=== PATIENT | female | born 1940 | race Caucasian/White ===

== ENCOUNTER 2018-08-22 09:15 | Inpatient (IN) | payer MEDICARE, BC ==
--- NOTE | 2018-08-22 10:43 | RAD ---
XR Femur Lt 2 View STANDARD History: [Leg swelling] Comparison: None. Findings: There is a left hip arthroplasty in place. There is a distal femoral fracture with mild ruby marely angulation as well as comminution. No definite intra-articular extension is appreciated. Impression: Comminuted distal femoral fracture without definite intra-articular extension.
--- NOTE | 2018-08-22 10:43 | RAD ---
Single view of the pelvis INDICATION: History of left leg swelling and trauma FINDINGS: There is a minimally displaced comminuted left greater trochanter fracture which is new. Th is is adjacent to a left hip endoprosthesis which is stable in appearance to a comparison dated 04/22/2014. There is diffuse osteopenia. There is a healed instrumented right intertrochanteric hip fra cture with cephalomedullary device. There are scattered vascular calcifications. There is a mild amount of retained stool within the colon. IMPRESSION: 1. Interval development of an minimally displaced comminuted left greater trochanteric hip fracture. 2. Left hip endoprosthesis appears unchanged in position. 3. Interval healing of the previously seen right intertrochanteric hip fracture with cephalomedullary device. 4. Diffuse osteopenia.
[2018-08-22 10:49] LABS: ALT (SGPT) 10 U/L (8-55); AST (SGOT) 12 U/L (5-34); Albumin 3.5 g/dL (3.4-4.8); Alkaline Phosphatase 68 U/L (40-150); Anion Gap 15 mmol/L (10-20); BUN (Urea Nitrogen) 26 mg/dL (9.8-20.1); Bilirubin, Total 0.6 mg/dL (0.2-1.2); CK (CPK) 117 U/L (29-168); Calc. Creatinine Clearance 0 mL/min (70-130); Carbon Dioxide 28 mmol/L (23-31); Chloride 108 mmol/L (98-107); Estimated GFR-MDRD 75; Globulin 3.4 g/dL (2.4-3.5); Glucose 124 mg/dL (83-110); Potassium 4.1 mmol/L (3.5-5.1); Protein, Total 6.9 g/dL (6.0-8.3); Sodium 147 mmol/L (136-145)
[2018-08-22 11:27] LABS: Hemoglobin 11.4 g/dL (12.0-16.0); Mean Corpuscular HGB CONC 31.8 g/dL (32.0-36.0); Mean Corpuscular Hemoglobin 32.5 pg (27.0-31.0); Platelet Count 107 thou/uL (130-400); RBC Distribution Width 11.8 % (11.5-14.5); Red Blood Cell (RBC) Count 3.52 mill/uL (4.20-5.40); White Blood Cell (WBC) Count 11.8 thou/uL (4.8-10.8)
[2018-08-22 11:34] LABS: Band 6 % (5-11); Lymphocytes 19 % (21-51); Monocytes 4 % (0-10); Neutrophil 71 % (42-75)
[2018-08-22 11:35] LABS: MDiff Complete? YES
--- NOTE | 2018-08-22 12:12 | RAD ---
Chest AP view INDICATION: Preop chest radiograph; history of fall with left femur fracture COMPARISON: April 22, 2014 FINDINGS: Lungs:There is patchy opacity within the left lower lobe may reflect atelectasis or pneumonia. Right lung is clear. There are radiopaque densities seen overlying the left hilar region which may be external to the patient reflecting improving artifact. Cardiac silhouette pulmonary vasculature:The cardiomediastinal silhouette appears within normal limit s. Pleural spaces:No pleural effusion or pneumothorax is demonstrated. Upper abdomen:No abnormality seen. Osseous structures: No acute osseous abnormality. There is scattered degenerative and osteoarthritic change present. There are stable healed rib deformities involving the left anterolateral chest wall. Additional findings:None. IMPRESSION: Patchy opacities within the left lower lobe may reflect pneumonia, aspiration or subsegme ntal atelectasis. There are stable healed rib deformities involving the anterolateral left chest wall. There are radiopaque densities overlying the left heart border which may be external to the pat ient. Recommend correlation.
--- NOTE | 2018-08-22 12:13 | RAD ---
XR Knee Lt 2 View: 08/22/2018 11:50 AM CLINICAL INDICATION: Fall with left knee pain COMPARISON: None. FINDINGS: Bones: There is a comminuted obliquely oriented supracondylar left femur fracture. The distal fractu re fragment is displaced laterally approximately one half shaft width. There is medial angulation at the fracture site. There is diffuse osteopenia. Joints: Within normal limits. Soft Tissue: There is soft tissue swelling of the distal left thigh. IMPRESSION: Angulated, mildly displaced left supracondylar femur fracture.
[2018-08-22 12:47] LABS: INR-International Normal Ratio 1.1; PTT 25.5 SEC (22.9-36.1); Prothrombin Time 14.3 SEC (12.0-14.7)
[2018-08-22] MEDS ORDERED: Dextrose 50% Abboject 50 ML SYRINGE SLOW IVP PRN (13:44)
[2018-08-22] MEDS ORDERED: Ondansetron ODT 4 MG TAB PO PRN (13:44)
[2018-08-22] MEDS ORDERED: Ondansetron PF 4 MG/2 ML Vial IVP PRN (13:44)
[2018-08-22] MEDS ORDERED: hydrALAZINE 20 MG/ML VIAL SLOW IVP PRN (13:44)
[2018-08-22] MEDS ORDERED: Dextrose 5% in Water 1,000 ML IV PRN (13:44)
[2018-08-22] MEDS ORDERED: traMADol HCl 50 MG TAB PO PRN (13:59)
[2018-08-22] MEDS: Acetaminophen 325 MG TAB PO SCH ×2 (15:25→20:59)
--- NOTE | 2018-08-22 15:26 | HP ---
This is Mary Street NP dictating a report for Jonathan Rose DO. CONSULT: Dr. Cortez, Orthopedic Surgery. HISTORY OF PRESENT ILLNESS: The patient presented to the emergency room with swelling and deformity to left distal femur. The patient's states that when he went to visit this morning the BUZZSAW OPERATOR HELPER and himself noticed swelling to her left leg and knee and he felt like she was in pain. It is unknown if the patient fell. The patient is currently nonambulatory. The patient lives at a private assisted living facility called [facility] and has recently been on hospice care. The patient has been taking Depakote, which has been making her more sleepy than normal. The patient was taken off the Depakote 3 days ago per her . The patient used to be able to transfer herself from wheelchair to bed and stand on her own, but has been nonambulatory for the last several months as she is deconditioned with generalized muscle weakness. The patient was also evaluated by Dr. Cortez with Orthopedic Surgery. Dr. Cortez and the patient's spouse feel like the patient would benefit from surgical repair of her left femur fracture for pain control. 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 PAST SURGICAL HISTORY: Right femur repair, left partial hip replacement, and left wrist repair. SOCIAL HISTORY: The patient has never smoked. Denies alcohol use. Denies history of drug use. The patient currently lives in an assisted living facility called [facility]. ALLERGIES: multiple documented MEDICATIONS: Clonazepam and Prozac REVIEW OF SYSTEMS: A 10-point review of systems is negative unless otherwise stated in the above HPI. PHYSICAL EXAMINATION: VITAL SIGNS: Blood pressure 109/66, pulse 102, respirations 17, temperature 99.1, SpO2 of 94% on room air, and respirations 17. GENERAL: The patient with upper extremity contractures. No obvious distress. The patient nonverbal and does not open eyes initially. HEENT AND NECK: Atraumatic, normocephalic. Unable to examine pupils due to patient's squinting eyes together, the patient with chronic purulent drainage. Trachea midline. No carotid bruit. RESPIRATORY: Bilateral breath sounds clear. No respiratory distress. Chest rise equal and nonlabored. CARDIOVASCULAR: Regular rate and rhythm. No murmurs. No pedal edema. EXTREMITIES: Upper extremities, skin tears to right elbow contractures noted. Lower extremities, 2+ pedal pulses bilateral. Left distal femur with swelling and deformity, appears shortened and externally rotated. ABDOMEN: Soft, nontender, and nondistended. Active bowel sounds. NEUROLOGIC: Opens eyes to voice, nonverbal, normal per . LABORATORY DATA: WBC 11.8, RBC 3.52, hemoglobin 11.4, hematocrit 35.9, and platelets 107. PT is 14.3, INR 1.1, and APTT 25.5. Sodium 147, potassium 4.1, chloride 108, carbon dioxide 28, anion gap 15, BUN 26, creatinine 0.75, estimated GFR 75, glucose 124, calcium 10.0, total bilirubin 0.6, AST 12, ALT 10, alkaline phosphatase 68, creatine kinase 117, serum total protein 6.9, albumin 3.5, globulin 3.4, albumin-globulin ratio 1.0. DIAGNOSTICS: 1. Femur x-ray, comminuted distal femoral fracture to the left. 2. Pelvis x-ray, diffuse osteopenia, interval healing of previously seen right intertrochanteric hip fracture with cephalomedullary device, left hip endoprosthesis appears unchanged, interval development of a minimally displaced comminuted left greater trochanteric hip fracture. 3. Chest x-ray, patchy opacities within the left lower lobe, may reflect pneumonia, aspiration, or atelectasis. Stable healed rib deformities involving the anterolateral left chest. 4. Left knee x-ray, angulated, mildly displaced left supracondylar femur fracture. IMPRESSION: 1. Left distal femur fracture. 2. History of Lewy body dementia, Parkinson, MVP PLAN: We will place the patient on the surgical floor. We will keep the patient comfortable and control pain. We will place the patient n.p.o. after midnight for repair of left distal femur fracture by Dr. Cortez. We will repeat lab work in the morning. We will place the patient on a bowel regimen. Plan is for the patient to go back to her assisted living location after surgery once the patient is stable. The plan was discussed with Dr. Rose who agrees. Job ID: [id number] [facility]
[2018-08-22 15:37] VITALS: BMI 17.3
[2018-08-22] MEDS: Senokot S 8.6-50 MG TAB PO SCH (20:59)
[2018-08-22] MEDS: Famotidine/PF 20 mg/2ml Vial SLOW IVP SCH (21:01)
[2018-08-22] MEDS: Lactated Ringer's 1,000 ML IV SCH (23:48)
[2018-08-23] MEDS ORDERED: Sodium Chloride 0.9% 1,000 ML IV SCH
[2018-08-23] MEDS: Acetaminophen 325 MG TAB PO SCH ×4 (01:17→19:45)
[2018-08-23 07:34] LABS: Anion Gap 8 mmol/L (10-20); BUN (Urea Nitrogen) 20 mg/dL (9.8-20.1); Calc. Creatinine Clearance 61 mL/min (70-130); Calcium 8.8 mg/dL (7.8-10.44); Carbon Dioxide 29 mmol/L (23-31); Chloride 110 mmol/L (98-107); Estimated GFR-MDRD Greater than 90; Glucose 94 mg/dL (83-110); Magnesium 1.6 mg/dL (1.6-2.6); Phosphorus 1.8 mg/dL (2.3-4.7); Potassium 3.4 mmol/L (3.5-5.1); Sodium 144 mmol/L (136-145)
[2018-08-23] MEDS ORDERED: Potassium Phosphate 30 MMOL in Sodium Chloride 0.9% 500 ML IVPB SCH (07:45)
[2018-08-23] MEDS ORDERED: Fentanyl 250 MCG/5 ML VIAL ONE (07:58)
[2018-08-23] MEDS: Famotidine/PF 20 mg/2ml Vial SLOW IVP SCH ×2 (08:57→19:56)
[2018-08-23] MEDS: Polyethylene Glycol 3350 17 GM Packet PO SCH (08:57)
[2018-08-23] MEDS: Senokot S 8.6-50 MG TAB PO SCH ×2 (08:57→19:54)
[2018-08-23] MEDS ORDERED: Clindamycin/D5W 900 mg/50 ml Premix Bag ONE (09:14)
--- NOTE | 2018-08-23 11:39 | RAD ---
EXAM: 6 fluoroscopic spot images of the left femur DATE: 08/23/2018 12:00 AM INDICATION: Open reduction internal fixation of the left femur COMPARISON: August 22, 2018 FINDING: There is been interval placement of a long plate and screw construct fixating the lateral a spect of the left femur. There is improved alignment of the comminuted left supracondylar femur fracture. This is near anatomic. The instrumentation projects in the expected position without gross evidence of complication. The total fluoroscopic time was 91.4 seconds. The total exposure was 4.83 mGy. IMPRESSION:ORIF of left supracondylar femur fracture
[2018-08-23] MEDS: Lactated Ringer's 1,000 ML IV SCH (14:13)
[2018-08-23 15:07] LABS: Band 8 % (5-11); Hemoglobin 9.7 g/dL (12.0-16.0); Lymphocytes 12 % (21-51); MDiff Complete? YES; Mean Corpuscular HGB CONC 32.4 g/dL (32.0-36.0); Mean Corpuscular Hemoglobin 33.2 pg (27.0-31.0); Monocytes 9 % (0-10); Neutrophil 70 % (42-75); Platelet Morphology Comment PLT clumps seen-ADEQ; RBC Distribution Width 11.9 % (11.5-14.5); Red Blood Cell (RBC) Count 2.93 mill/uL (4.20-5.40); White Blood Cell (WBC) Count 11.6 thou/uL (4.8-10.8)
--- NOTE | 2018-08-23 16:38 | PRG ---
DATE OF SERVICE: 08/23/2018 SUBJECTIVE: This is a 77-year-old female, postop day 0 left distal femur fracture. The patient is awake and alert, in no distress. The patient's spouse is at bedside helping the patient eat which patient is tolerating a soft diet well. The patient is also tolerating liquids. The patient does not appear to be in any pain or distress. OBJECTIVE: VITAL SIGNS: Temperature 98.3, pulse 94, respirations 16, SpO2 of 97% on 2 L, blood pressure 103/67. GENERAL: The patient is awake and alert, currently eating in no distress. RESPIRATORY: No respiratory distress. Bilateral breath sounds equal, nonlabored. CARDIOVASCULAR: Regular rate and rhythm. EXTREMITIES: Moves all extremities. Left leg with a bandage in place. Positive distal pulses. ABDOMEN: Soft, nontender, nondistended. LABORATORY DATA: WBC 11.6, RBC 2.93, hemoglobin 9.7, hematocrit 30.1. Sodium 144, potassium 3.4, chloride 110, carbon dioxide 29, BUN 20, creatinine 0.53, estimated GFR 90, glucose 94, calcium 8.8, phosphorus 1.8, and magnesium 1.6. DIAGNOSTICS: Femur x-ray. IMPRESSION: 1. Open reduction and internal fixation of left supracondylar femur fracture. 2. Left distal femur fracture postop day 0 open reduction and internal fixation. 3. History of Lewy body dementia, Parkinson's, mitral valve prolapse. PLAN: We will continue the patient on a regular diet as tolerated. We will control the patient's pain. We will provide comfort measures. Plan is for the patient to go back to her assisted living location in the next day or so. Plan was discussed with Dr. Rose, who agrees. Job ID: [id number]
[2018-08-23] MEDS: Clindamycin/D5W 600 MG in Premix Bag 1 BAG IVPB SCH (16:44)
[2018-08-23] MEDS ORDERED: clonazePAM 1 MG TAB PO PRN (18:19)
[2018-08-24] MEDS: Acetaminophen 325 MG TAB PO SCH ×6 (01:12→20:25)
[2018-08-24] MEDS: Clindamycin/D5W 600 MG in Premix Bag 1 BAG IVPB SCH (01:15)
[2018-08-24] MEDS: Lactated Ringer's 1,000 ML IV SCH (01:20)
[2018-08-24 05:43] LABS: Anion Gap 10 mmol/L (10-20); BUN (Urea Nitrogen) 11 mg/dL (9.8-20.1); Calc. Creatinine Clearance 57 mL/min (70-130); Carbon Dioxide 25 mmol/L (23-31); Chloride 106 mmol/L (98-107); Estimated GFR-MDRD Greater than 90; Glucose 89 mg/dL (83-110); Potassium 4.3 mmol/L (3.5-5.1); Sodium 137 mmol/L (136-145)
[2018-08-24] MEDS ORDERED: FLUoxetine HCl 20 MG CAP PO SCH (09:00)
[2018-08-24] MEDS ORDERED: traMADol HCl 50 MG TAB PO SCH (09:00)
[2018-08-24] MEDS ORDERED: Enoxaparin Sodium 30 MG/0.3 ML SYRINGE SC SCH (09:00)
--- NOTE | 2018-08-24 09:29 | CON ---
DATE OF CONSULTATION: 08/22/2018 CONSULTING PHYSICIAN: Dr. Sergio Franklin. CHIEF COMPLAINT: Left hip pain. HISTORY OF PRESENT ILLNESS: Ms. Townsend is a 77-year-old female, who is currently at [facility] per report. The patient's and son are at bedside, who gave the history. The patient did not respond to questions or answer any questions asked during my time. During my visit, I discussed with the patient's events, which they are unaware, just noted to have left leg swelling, concern for a possible transfer, possible other injury that led to this left leg pain. The patient is currently curled in bed without complaint. PAST MEDICAL HISTORY: Includes a basal cell carcinoma, mitral valve prolapse, celiac disease, left basicervical fracture, right intertrochanteric, left wrist fracture, frequent UTIs, and dementia. PAST SURGICAL HISTORY: Includes a right open reduction and internal fixation for intertrochanteric and left hemiarthroplasty. PSYCHIATRIC HISTORY: Panic attacks and Lewy body dementia. ALLERGIES: AGGRENOX, ALENDRONATE, ARIPIPRAZOLE, ASPIRIN, AVELOX, BIAXIN, CEFTIN , CEFUROXIME, CLARITHROMYCIN, DIPYRIDAMOLE, DOXYCYCLINE, MYCIN, ERYTHROMYCIN, EZETIMIBE, FLUOXETINE, FOSAMAX, GLUTEN, HYDROCODONE, MOXIFLOXACIN, NAPROSYN, PENICILLIN G, PENICILLINS, PROZAC, RISPERDAL, RISPERIDONE, RYNATAN, VICODIN, AND ZETIA. MEDICATIONS: Please see admission list for full. SOCIAL HISTORY: Nondrinker. Nonsmoker. Currently in hospice, lives in [facility]. and son are at bedside. REVIEW OF SYSTEMS: Noncontributory. PHYSICAL EXAMINATION: VITAL SIGNS: Blood pressure 110/70, pulse 115, respiratory rate 20, unable to respond to pain, and 96% on room air, resting in bed. GENERAL: Alert and oriented x0. The patient resting in bed. Responding to painful stimuli. MUSCULOSKELETAL: Left lower extremity shows a large swelling and effusion consistent with injury. No open wounds. She has crepitus with motion of the distal femur. She has downgoing toes with Babinski. She has brisk cap refill. The patient has 1+ pulses noted in dorsalis pedis. The patient has soft compartments. With internal rotation of her left leg, she has pain and well-healed surgical scar. RADIOGRAPHS: Show a supracondylar distal femur fracture without obvious intracondylar extension. IMPRESSION: 1. Left chondral distal femur fracture with history of a left hip hemiarthroplasty. 2. Lewy body dementia. 3. Hospice. 4. Transfers, only ambulator. ASSESSMENT/PLAN: I spent about an 1 hour minutes in discussion with the patient 's family for conservative and operative management of the patient. I discussed the options of placing the patient in a splint for a period of time for comfort measures for three months. I discussed undergoing operative fixation, I discussed the risks and benefits of both procedures as the family felt that she is more mobile and was not consisting helping with transfers as well as transferring to a wheelchair. I felt that she would benefit from fixation as well as stability for pain control measures and desired for operative fixation. I discussed with them the risks and benefits of operative fixation include pain, scar, bleeding, infection , damage to vital structures, decreased range of motion and strength, nonunion, malunion, failure of the implant, need for further surgeries, loss of life or limb. I discussed she has increased mortality given this femur fracture as well as her multiple medical problems. I discussed that she may never weightbear on this again, it would be many for helping with transfers to software brace for likely 2 weeks just for stability standpoint. Family understand this, acknowledge it, they desire to proceed. She will be posted, admitted for trauma and followed inhouse. Job ID: [id number] [facility]
[2018-08-24 09:45] LABS: Magnesium 1.3 mg/dL (1.6-2.6); Phosphorus 3.3 mg/dL (2.3-4.7)
[2018-08-24] MEDS: Senokot S 8.6-50 MG TAB PO SCH ×2 (11:03→20:23)
[2018-08-24] MEDS: Famotidine 20 MG TAB PO SCH ×2 (11:04→20:23)
[2018-08-24] MEDS: Ferrous Sulfate 325 MG TAB PO SCH ×2 (11:04→20:23)
--- NOTE | 2018-08-24 11:04 | OP ---
DATE OF PROCEDURE: 08/23/2018 PREOPERATIVE DIAGNOSES: Left supracondylar femur fracture, history of left knee arthroplasty. POSTOPERATIVE DIAGNOSES: Left supracondylar femur fracture, history of left knee arthroplasty. PROCEDURE PERFORMED: Open reduction and internal fixation of left supracondylar femur fracture. TRAIN OPERATIONS MANAGER: Julio Alexander PA-C ANESTHESIOLOGIST: Victor M Krishna MD ANESTHESIA: The patient received spinal with sedation. ESTIMATED BLOOD LOSS: 150 mL. TOURNIQUET TIME: None. IMPLANTS: A 16-hole left periarticular distal femoral locking plate. The patient had a total of five 5.0 locking screws distally, two full bicortical lag screws, one nonlocking 4.5 and two unicortical 5.0. COMPLICATIONS: None. ANTIBIOTICS: Clindamycin. HISTORY OF PRESENT ILLNESS: Ms. Townsend is a pleasant 77-year-old female, who presents after injuring her [facility]. She is currently on hospice. Her is at the bedside. The patient per family transferrs to wheelchair. She does not walk or has not walked, has showed steady decline in last 2 weeks since injury and has pain with motion of her hip. I discussed with the family the risks and benefits of conservative versus operative management. Family elects for operative management. We proceeded to discuss the risks and benefits of the surgery to include pain, scar, bleeding, infection, decreased range of motion and strength, nonunion, fracture above or below the stem, failure of hardware, failure of union, damage to vital structures, blood clots, loss of life or limb. The patient and her family understood the risks and benefits and elected to proceed. DESCRIPTION OF PROCEDURE: Time-out was performed designating the patient's left lower extremity as the operative site based on site, consents, and marking. After time-out, the patient's left lower extremity was prepped and draped with chlorhexidine. We made an incision down over the skin, IT band, came down onto the patient's distal femur. We used a Griffith to elevate the vastus lateralis to slide our 16-hole plate under fluoroscopic guidance before we chose our length, slid the plate up in position. We pinned it in both sides to make sure traction for reduction. We placed a 4.5 nonlocking screw across the shaft to press the plate to the bone proximally. We then placed conical screw distally, placed three 5.0 screws, pulled the conical screw out and replaced in place one more 5.0 screw total. We placed two full bicortical 5.0 screws proximally and then 2 unicortical screws. We then washed. We closed with 2-0 Stratafix 0, 2-0, and ariela. The patient will be in a knee immobilizer. She will remain nonweightbearing. The patient will have no weightbearing for 3 months. The patient tolerated the procedure throughout. She will be admitted back, received 24 hours of clindamycin and will be followed in-house by Trauma. Job ID: [id number]
[2018-08-24] MEDS: Polyethylene Glycol 3350 17 GM Packet PO SCH (11:07)
[2018-08-24] MEDS ORDERED: Magnesium 2 GM/50 ML 1 GM in Premix Bag 1 BAG IVPB SCH (14:45)
[2018-08-24] MEDS: traMADol HCl 50 MG TAB PO SCH ×3 (14:46→20:33)
[2018-08-24] MEDS: Ascorbic Acid 500 mg Chewable Tablet PO SCH (14:47)
--- NOTE | 2018-08-24 15:18 | PRG ---
DATE OF SERVICE: 08/24/2018 SUBJECTIVE: A 77-year-old female, postop day 1 from open reduction and internal fixation of the left distal femur fracture. The patient is awake and alert. No acute distress. Spouse is at bedside, helping the patient to eat breakfast, which the patient is tolerating well. The patient does not appear to be in any pain or distress. states that the patient was in pain when they changed her brace; however, other than that, has been doing really well. OBJECTIVE: VITAL SIGNS: Temperature 98.6, pulse 102, respirations 19, O2 100% on room air, blood pressure 100/67. GENERAL: The patient is awake and alert, eating breakfast, in no distress. RESPIRATORY: No respiratory distress. Bilateral breath sounds equal and nonlabored. CARDIOVASCULAR: Regular rate and rhythm. No rubs or gallops. EXTREMITIES: Moves all extremities. Left leg has bandage in place. Bilateral lower extremities, pulses are full and equal. ABDOMEN: Soft, nontender, and nondistended with positive bowel sounds. LABORATORY DATA: Hemoglobin is 8.0 from 9.7. Sodium 137, potassium 4.3, chloride 106, carbon dioxide 25, anion gap 10, BUN 11, creatinine 0.57, GFR greater than 90, phosphorus 3.3, magnesium 1.3. DIAGNOSTICS: Femur x-ray on 08/23/2018; impression, ORIF of left supracondylar femur fracture. IMPRESSION: 1. Open reduction and internal fixation of left supracondylar femur fracture postop day 1. 2. History of Lewy body dementia, Parkinson's, mitral valve prolapse. PLAN: The patient was started on aspirin b.i.d. as well as tramadol t.i.d. Magnesium was replaced. We will recheck it in the a.m. The patient will continue on regular diet as tolerated. The patient's pain is well controlled. We will continue to provide comfort measures. Plan is for the patient to go to either rehab or assisted facility at discharge in the next couple of days. Choice letter was signed for [facility] as well as second choice for [place] with referral sent. Plan was discussed with Dr. Dougherty, who agrees. Job ID: [id number]
[2018-08-24] MEDS: Aspirin 81 mg Enteric Coated Tablet PO SCH (20:23)
[2018-08-24] MEDS ORDERED: Sodium Chloride 0.9% 250 ML IVPB SCH (23:59)
[2018-08-25 00:14] LABS: Hemoglobin 7.7 g/dL (12.0-16.0); Mean Corpuscular HGB CONC 32.3 g/dL (32.0-36.0); Mean Corpuscular Hemoglobin 32.9 pg (27.0-31.0); Mean Platelet Volume 10.8 fL (7.4-10.4); Platelet Count 121 thou/uL (130-400); RBC Distribution Width 12.3 % (11.5-14.5); Red Blood Cell (RBC) Count 2.32 mill/uL (4.20-5.40); White Blood Cell (WBC) Count 8.5 thou/uL (4.8-10.8)
[2018-08-25] MEDS ORDERED: Hydrocortisone Sod Succ/PF 100 mg/2 ml Vial IVP PRN (01:47)
[2018-08-25 01:58] LABS: Mean Corpuscular HGB CONC 32.1 g/dL (32.0-36.0); Mean Corpuscular Hemoglobin 32.6 pg (27.0-31.0); Mean Platelet Volume 10.3 fL (7.4-10.4); Platelet Count 113 thou/uL (130-400); RBC Distribution Width 12.3 % (11.5-14.5); Red Blood Cell (RBC) Count 2.13 mill/uL (4.20-5.40)
[2018-08-25] MEDS ORDERED: Sodium Chloride 0.9% 500 ML IVPB SCH (02:00)
[2018-08-25 02:14] LABS: Anion Gap 10 mmol/L (10-20); BUN (Urea Nitrogen) 12 mg/dL (9.8-20.1); Calc. Creatinine Clearance 59 mL/min (70-130); Calcium 7.8 mg/dL (7.8-10.44); Carbon Dioxide 26 mmol/L (23-31); Chloride 105 mmol/L (98-107); Estimated GFR-MDRD Greater than 90; Glucose 123 mg/dL (83-110); Magnesium 1.7 mg/dL (1.6-2.6); Potassium 3.6 mmol/L (3.5-5.1); Sodium 137 mmol/L (136-145)
[2018-08-25 02:45] LABS: Band 10 % (5-11); Eosinophils 1 % (0-10); Lymphocytes 25 % (21-51); MDiff Complete? YES; Macrocytosis SLIGHT = 6-15 cells (100X) (0-5/hpf); Monocytes 2 % (0-10); Neutrophil 62 % (42-75); Platelet Clumps MODERATE; Platelet Morphology Comment PLT clumps seen-ADEQ
[2018-08-25] MEDS: Acetaminophen 325 MG TAB PO SCH ×4 (02:54→20:14)
[2018-08-25] MEDS ORDERED: Acetaminophen 650 MG Suppository PR PRN (06:15)
[2018-08-25] MEDS: Ferrous Sulfate 325 MG TAB PO SCH ×2 (07:46→16:32)
[2018-08-25] MEDS: Ascorbic Acid 500 mg Chewable Tablet PO SCH (07:46)
[2018-08-25] MEDS ORDERED: Magnesium 2 GM/50 ML 2 GM in Premix Bag 1 BAG IVPB SCH (08:00)
[2018-08-25] MEDS: Senokot S 8.6-50 MG TAB PO SCH ×2 (08:28→20:15)
[2018-08-25] MEDS: FLUoxetine HCl 20 MG CAP PO SCH (08:28)
[2018-08-25] MEDS: Polyethylene Glycol 3350 17 GM Packet PO SCH (08:29)
[2018-08-25] MEDS: Aspirin 81 mg Enteric Coated Tablet PO SCH ×2 (08:29→20:14)
[2018-08-25] MEDS: Famotidine 20 MG TAB PO SCH ×2 (08:29→20:15)
[2018-08-25] MEDS: traMADol HCl 50 MG TAB PO SCH ×3 (08:36→20:15)
[2018-08-25] MEDS ORDERED: Hydrocortisone 10 mg Tablet PO SCH (09:00)
[2018-08-25] MEDS ORDERED: Potassium Chloride 20 MEQ in Sodium Chloride 0.9% 250 ML 250 ML IVPB SCH (09:00)
--- NOTE | 2018-08-25 11:39 | PRG ---
DATE OF SERVICE: 08/25/2018 SUBJECTIVE: This is a 77-year-old female, postop day 2 from open reduction and internal fixation of the left distal femur fracture. The patient is awake and alert on exam. The patient has had intermittent episodes of confusion and screaming overnight. Currently, she does not appear to be in any pain or distress. is present at bedside and states the patient has been eating well. He feels like she is doing very well. He feels her pain is well controlled. OBJECTIVE: VITAL SIGNS: Temperature 98.1, pulse 86, respirations 18, O2 saturation 93% on 2 L nasal cannula, blood pressure 98/64. GENERAL: The patient is awake and alert. Eating breakfast. No acute distress. RESPIRATORY: Bilaterally clear to auscultation. No respiratory distress noted. Bilateral chest rise. Breathing is nonlabored. CARDIOVASCULAR: Regular rate and rhythm. No murmurs, rubs, or gallops. Radial pulses are 2+. EXTREMITIES: Moves all extremities. Pulses are full and equal. ABDOMEN: Soft, nontender, nondistended with positive bowel sounds. LABORATORY DATA: White blood cells 8.0, hemoglobin 7.0, hematocrit 21.7, platelets 113. Sodium 137, potassium 3.6, chloride 105, carbon dioxide 26, BUN 12, creatinine 0.55, phosphorus 3.3, magnesium 1.7. Cortisol 6.60, this is a.m. cortisol. DIAGNOSTIC FINDINGS: Femur x-ray on 08/23 shows interval placement of a long plate and screw construct fixating lateral aspect of the left femur. This improved alignment of the comminuted left supracondylar femur fracture. This is near anatomic. Instrumentation projects in expected position without gross evidence of complication. The total fluoroscopic time was 91.4 seconds. The total exposure was 4.83 mGy. ASSESSMENT: 1. Open reduction and internal fixation of left supracondylar femur fracture. Postop day 2. 2. History of Lewy body dementia, Parkinson's, mitral valve prolapse. 3. Hypomagnesemia, improving. 4. Hypokalemia. 5. Acute blood loss anemia. 6. Magnesium and potassium will be replaced and will be rechecked in a.m. PLAN: The patient received 1 unit packed red blood cells and recheck her hemoglobin in the a.m. The patient's pain is well controlled. We will continue to provide comfort measures. The plan is for the patient to go back to [facility] on hospice most likely tomorrow. Plan was discussed with Dr. Rose, who agrees. The patient was evaluated on morning rounds. Job ID: [id number]
[2018-08-25] MEDS: Hydrocortisone 10 mg Tablet PO SCH ×2 (14:45→22:30)
[2018-08-26] MEDS: Acetaminophen 325 MG TAB PO SCH ×4 (03:12→21:40)
[2018-08-26] MEDS: Hydrocortisone 10 mg Tablet PO SCH ×4 (06:09→17:21)
[2018-08-26 06:29] LABS: Phosphorus 1.4 mg/dL (2.3-4.7)
[2018-08-26 06:30] LABS: Anion Gap 8 mmol/L (10-20); BUN (Urea Nitrogen) 18 mg/dL (9.8-20.1); Calc. Creatinine Clearance 47 mL/min (70-130); Calcium 8.8 mg/dL (7.8-10.44); Carbon Dioxide 30 mmol/L (23-31); Estimated GFR-MDRD 83; Glucose 150 mg/dL (83-110); Magnesium 2.1 mg/dL (1.6-2.6); Potassium 4.3 mmol/L (3.5-5.1)
[2018-08-26 06:36] LABS: #Eosinphils 0.1 thou/uL (0.0-0.7); #Lymphocytes 0.7 thou/uL (1.20-3.40); #Monocytes 1.2 thou/uL (0.11-0.59); #Neutrophils 12.2 thou/uL (1.40-6.50); %Basophils 0.2 % (0.0-1.0); %Eosinophils 0.4 % (0.0-10.0); %Lymphocytes 4.9 % (21.0-51.0); %Monocytes 8.4 % (0.0-10.0); %Neutrophils 86.2 % (42.0-75.0); Hemoglobin 9.4 g/dL (12.0-16.0); MDiff Complete? YES; Mean Corpuscular Hemoglobin 31.6 pg (27.0-31.0); Mean Corpuscular Volume 98.7 fL (78.0-98.0); Mean Platelet Volume 10.4 fL (7.4-10.4); Platelet Clumps MODERATE; Platelet Count 177 thou/uL (130-400); Platelet Morphology Comment Appears Adequate; Red Blood Cell (RBC) Count 2.98 mill/uL (4.20-5.40); White Blood Cell (WBC) Count 14.2 thou/uL (4.8-10.8)
[2018-08-26 06:43] LABS: Chloride 102 mmol/L (98-107); Sodium 136 mmol/L (136-145)
[2018-08-26] MEDS ORDERED: Sodium Phosphate 45 MMOL in Sodium Chloride 0.9% 250 ML 250 ML IVPB SCH (07:00)
[2018-08-26] MEDS ORDERED: Sodium Phosphate 30 MMOL in Sodium Chloride 0.9% 250 ML 250 ML IVPB SCH (07:00)
[2018-08-26] MEDS: Ferrous Sulfate 325 MG TAB PO SCH ×2 (07:34→16:29)
[2018-08-26] MEDS: Ascorbic Acid 500 mg Chewable Tablet PO SCH (07:34)
[2018-08-26] MEDS: Polyethylene Glycol 3350 17 GM Packet PO SCH (08:48)
[2018-08-26] MEDS: Famotidine 20 MG TAB PO SCH ×2 (08:48→21:40)
[2018-08-26] MEDS: Senokot S 8.6-50 MG TAB PO SCH ×2 (08:48→21:37)
[2018-08-26] MEDS: FLUoxetine HCl 20 MG CAP PO SCH (08:49)
[2018-08-26] MEDS: Aspirin 81 mg Enteric Coated Tablet PO SCH ×2 (08:49→21:37)
[2018-08-26] MEDS: traMADol HCl 50 MG TAB PO SCH ×3 (08:54→21:37)
[2018-08-26] MEDS ORDERED: PHOS-NAK 1 PKT PACK PO SCH (09:30)
--- NOTE | 2018-08-26 12:06 | PRG ---
DATE OF SERVICE: 08/26/2018 SUBJECTIVE: A 77-year-old female, postop day #3 from ORIF of left distal femur fracture. The patient is awake and alert, sitting up in bed, eating breakfast. She does not appear to be in any pain or distress. is present at bedside and states that the patient has been doing well. Her pain is well controlled. OBJECTIVE: VITAL SIGNS: Temperature 97.9, pulse 96, respirations 16, O2 93% on room air, and blood pressure 126/72. GENERAL: The patient is awake and alert. No acute distress. RESPIRATORY: Lungs are bilaterally clear to auscultation. No respiratory distress noted. There is equal chest rise and breathing is nonlabored. CARDIOVASCULAR: Regular rate and rhythm. No murmurs, rubs, or gallops. EXTREMITIES: The patient moves all extremities. Pulses are full and equal. ABDOMEN: Soft, nontender, and nondistended with positive bowel sounds. LABORATORY DATA: White blood cells 14.2, hemoglobin 9.4, hematocrit 29.4, platelets 177. Sodium 136, potassium 4.3, chloride 102, carbon dioxide 30, BUN 18, creatinine 0.69, calcium 8.8, phosphorus 1.4, and magnesium 2.1. DIAGNOSTIC IMAGING: There is no new diagnostic imaging to report. ASSESSMENT: 1. Open reduction and internal fixation of left supracondylar femur fracture postop day #3. 2. History of Lewy body dementia, Parkinson's, mitral valve prolapse. 3. Hypomagnesemia, resolved. 4. Hypophosphatemia. 5. Hypokalemia, resolved. 6. Acute blood loss anemia, improving. PLAN: The patient received 1 unit of packed red blood cells yesterday and her hemoglobin improved this morning. The patient's pain continues to be well controlled. We will continue to provide comfort measures. The patient will plan to go back to [facility] on hospice and is pending placement. We will also replace her phosphorus today and recheck in the morning. The patient was seen and discussed with Dr. Rose during morning rounds and family agrees with the plan. Job ID: [id number] [facility]
--- NOTE | 2018-08-26 15:09 | EKG ---
Test Reason : Blood Pressure : / mmHG Vent. Rate : 090 BPM Atrial Rate : 090 BPM P-R Int : 110 ms QRS Dur : 068 ms QT Int : 340 ms P-R-T Axes : 054 -11 -04 degrees QTc Int : 415 ms Sinus rhythm Nonspecific T wave abnormality Abnormal ECG Confirmed by FENG CEDENO ([id number]) on 08/26/2018 3:09:32 PM Referred By: DONYA Confirmed By:FENG CEDENO
[2018-08-27] MEDS: Acetaminophen 325 MG TAB PO SCH ×2 (02:28→09:00)
[2018-08-27] MEDS: Hydrocortisone 10 mg Tablet PO SCH (02:28)
[2018-08-27 08:49] LABS: Anion Gap 12 mmol/L (10-20); BUN (Urea Nitrogen) 18 mg/dL (9.8-20.1); Calc. Creatinine Clearance 57 mL/min (70-130); Calcium 8.9 mg/dL (7.8-10.44); Carbon Dioxide 28 mmol/L (23-31); Chloride 103 mmol/L (98-107); Estimated GFR-MDRD Greater than 90; Glucose 84 mg/dL (83-110); Magnesium 1.8 mg/dL (1.6-2.6); Phosphorus 2.4 mg/dL (2.3-4.7); Potassium 3.9 mmol/L (3.5-5.1); Sodium 139 mmol/L (136-145)
[2018-08-27] MEDS: Aspirin 81 mg Enteric Coated Tablet PO SCH (09:00)
[2018-08-27] MEDS: Ascorbic Acid 500 mg Chewable Tablet PO SCH (09:00)
[2018-08-27] MEDS: Polyethylene Glycol 3350 17 GM Packet PO SCH (09:00)
[2018-08-27] MEDS: FLUoxetine HCl 20 MG CAP PO SCH (09:00)
[2018-08-27] MEDS: Senokot S 8.6-50 MG TAB PO SCH (09:00)
[2018-08-27] MEDS: Ferrous Sulfate 325 MG TAB PO SCH (09:00)
[2018-08-27] MEDS: traMADol HCl 50 MG TAB PO SCH (09:01)
[2018-08-27 09:25] LABS: Eosinophils 1 % (0-10); Hemoglobin 9.6 g/dL (12.0-16.0); Lymphocytes 27 % (21-51); MDiff Complete? YES; Mean Corpuscular HGB CONC 32.1 g/dL (32.0-36.0); Mean Corpuscular Hemoglobin 31.3 pg (27.0-31.0); Mean Corpuscular Volume 97.5 fL (78.0-98.0); Mean Platelet Volume 9.7 fL (7.4-10.4); Monocytes 4 % (0-10); Neutrophil 68 % (42-75); Platelet Clumps MARKED; Platelet Morphology Comment PLT clumps seen-ADEQ; Polychromasia SLIGHT = 2-3 cells (100X) (0-2/hpf); RBC Distribution Width 15.2 % (11.5-14.5); Red Blood Cell (RBC) Count 3.05 mill/uL (4.20-5.40); White Blood Cell (WBC) Count 14.9 thou/uL (4.8-10.8)
[2018-08-27 12:07] VITALS: BP 133/69; TEMP 98.8
--- NOTE | 2018-08-28 05:03 | DIS ---
DATE OF ADMISSION: 08/22/2018 DATE OF DISCHARGE: 08/27/2018 RESIDENT: Thao Kern MD ADMITTING ATTENDING: Jonathan Rose DO DISCHARGE ATTENDING: Jonathan Rose DO CONSULTS: Orthopedics, Alfie Cortez MD. PROCEDURES PERFORMED: 1. Femur, left, two views: Comminuted distal femoral fracture without definite intra-articular extension. 2. Pelvis x-ray: Interval development of minimally displaced comminuted left greater trochanteric hip fracture. Left hip endoprosthesis appears unchanged in position. Interval healing of the previously seen right intertrochanteric hip fracture with cephalomedullary device. Diffuse osteopenia. 3. Chest x-ray, 08/22/2018: Patchy opacities within the left lower lobe, may reflect pneumonia, aspiration or subsegmental atelectasis. Stable healed rib deformities involving the anterolateral left chest wall. Radiopaque densities overlying the left heart border, which maybe external to the patient. 4. Knee x-ray, left, two view: Angulated, mildly displaced left supracondylar femur fracture. 5. Femur, left; ORIF of left supracondylar femur fracture. 6. 08/23; ORIF of left supracondylar femur fracture by Dr. Cortez. PRIMARY DIAGNOSIS: Left supracondylar femur fracture, status post open reduction and internal fixation. SECONDARY DIAGNOSES: 1. Hypomagnesemia. 2. Hypophosphatemia. 3. Hypokalemia, resolved. 4. Acute blood loss anemia, improving. 5. History of Lewy body dementia, Parkinson's, mitral valve prolapse. DISCHARGE MEDICATIONS: 1. Tylenol 650 mg p.o. q.6 hours p.r.n. for pain. 2. Vitamin C 1000 mg p.o. q.a.m. with meals. 3. Aspirin 81 mg p.o. b.i.d. 4. Klonopin 1 mg p.o. t.i.d. p.r.n. for anxiety or agitation. 5. Ferrous sulfate 325 mg p.o. b.i.d. with meals. 6. Prozac 20 mg p.o. daily. 7. Polyethylene glycol 17 g p.o. daily p.r.n. for constipation. 8. Senokot 2 tabs p.o. b.i.d. p.r.n. for constipation. 9. Tramadol 50 mg p.o. t.i.d. p.r.n. for pain. DISCONTINUED MEDICATIONS: None. HISTORY OF PRESENT ILLNESS/HOSPITAL COURSE: This is a 77-year-old female, who presented to the ER with filling deformity of the left distal femur. The patient's states that when he went to visit her that morning, the CLINICAL CYTOPATHOLOGIST and he noticed swelling to her left leg and knee, and he felt like she was in pain. It is unknown if the patient fell. The patient was apparently at that time nonambulatory. The patient lived at a private facility called [facility] and has recently been placed on hospice care. The patient had been taking Depakote, which had been making her more sleepy than usual. The patient was taken off the Depakote 3 days prior to admission per the . The patient used to be able to transfer herself from wheelchair to bed and stand on her own. However, she has been nonambulatory for the past several months due to deconditioning with generalized muscle weakness. The patient was evaluated by Dr. Cortez with Orthopedic Surgery. Dr. Cortez and the patient's spouse felt like the patient would benefit from surgical repair for left femur fracture for pain control. 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 The patient's hip was repaired on August 23. The patient subsequently had a drop in her hemoglobin from 11.7 down as low as 7.0. On discharge, her hemoglobin was 9.6. The patient was also given a short course of steroids as she had some hypotension during her stay. This was discontinued the day of her discharge. Her blood pressures were stable. Her phosphorus and magnesium were also replaced during her stay. Her discharge phosphorus was 2.4 and discharge magnesium was 1.8. The patient was eating and drinking and her pain was well controlled at discharge. DISPOSITION: Stable. DISCHARGE INSTRUCTIONS: 1. Location: [facility] with [facility]. 2. Diet: Regular diet with Ensure b.i.d. 3. Activity: Occupational Therapy and Physical Therapy to assist. Nonweightbearing left lower extremity. 4. Follow up: With Dr. Cortez in 10 days. Follow up with primary care provider within 1 week of discharge. Job ID: [id number]
== END 2018-08-27 14:43 | DRG 481 ==
LOC: ERS 09:15 → SURG A 14:10
PROVIDERS: ADMIT Surgery; ATTEND Surgery
PROC: 0QSC04Z Reposition Left Lower Femur with Internal Fixation Device, Open Approach (ICD-10-PCS; principal; 2018-08-23)
DX: S72.452A Displaced supracondylar fracture without intracondylar extension of lower end of left femur, initial encounter for closed fracture (principal); D62 Acute posthemorrhagic anemia; I34.1 Nonrheumatic mitral (valve) prolapse; Z66 Do not resuscitate; G31.83 Neurocognitive disorder with Lewy bodies; F02.80 Dementia in other diseases classified elsewhere, unspecified severity, without behavioral disturbance, psychotic disturbance, mood disturbance, and anxiety; F41.0 Panic disorder [episodic paroxysmal anxiety]; W19.XXXA Unspecified fall, initial encounter; Z88.8 Allergy status to other drugs, medicaments and biological substances; Z88.1 Allergy status to other antibiotic agents; Z88.0 Allergy status to penicillin; Y92.099 Unspecified place in other non-institutional residence as the place of occurrence of the external cause; E83.42 Hypomagnesemia; E87.6 Hypokalemia; E83.39 Other disorders of phosphorus metabolism; Z96.642 Presence of left artificial hip joint
CPT/HCPCS: 36415; 36430; 71045; 72170; 76000; 80048; 80053; 82533; 82550; 83735; 84100; 85007; 85018; 85025; 85027; 85610; 85730; 86850; 86900; 86901; 93005; 93010; 96360; C1713; G0390; J1650; J1720; J3010; J3475; J3480; J3490; J7050; P9016; S0028